=== PATIENT | male | born 1960 | race African-American/Black ===

== ENCOUNTER 2023-09-21 10:40 | Emergency (ER) | payer BC ==
[~2023-09-21] VITALS: Ht 172.7 cm; Wt 56.7 kg
[2023-09-21 10:59] VITALS: BP 141/81; PULSE 105; RESP 18; TEMP 99; O2SAT 99
[2023-09-21 11:25] VITALS: BP 135/67; PULSE 105; RESP 18; TEMP 98; O2SAT 99
== END 2023-09-21 11:25 | disposition home or self-care (01) ==
LOC: MED 10:40
DX: S91.002A Unspecified open wound, left ankle, initial encounter (principal); Z88.0 Allergy status to penicillin; X58.XXXA Exposure to other specified factors, initial encounter; Y92.89 Other specified places as the place of occurrence of the external cause; Y93.89 Activity, other specified; Y99.8 Other external cause status
CPT/HCPCS: 99281

== ENCOUNTER 2023-09-21 15:23 | Inpatient (IN) | payer BC ==
[~2023-09-21] VITALS: Ht 162.6 cm; Wt 57.2 kg
[2023-09-21] MEDS ORDERED: LORazepam 1 MG TAB PO ONE (16:00)
[2023-09-21 16:03] VITALS: BP 125/81; PULSE 101; RESP 20; TEMP 97; O2SAT 98
[2023-09-21] MEDS ORDERED: ACETAMINOPHEN EXTRA STRENGTH 500 MG TAB PO ONE (16:30)
[2023-09-21] MEDS ORDERED: NACL 0.9% 1,000 ML IV ONE (17:05)
[2023-09-21 17:34] LABS: ALANINE AMINOTRANSFERASE 28 U/L (12-78); ALBUMIN 2.3 g/dL (3.4-5.0); ALKALINE PHOSPHATASE 100 U/L (50-136); ASPARTATE AMINOTRANSFERASE 60 U/L (15-37); CALCIUM 9.3 mg/dL (8.5-10.1); CARBON DIOXIDE 26.1 mmol/L (21-32); CHLORIDE 101 mmol/L (98-107); CREATINE KINASE, TOTAL 405 U/L (39-308); CREATININE 1.4 mg/dL (0.6-1.3); GFR ARICAN-AMERICAN 66 mL/min (>90); GFR NON ARICAN-AMERICAN 54 mL/min (>90); GLUCOSE 116 mg/dL (74-106); POTASSIUM 5.1 mmol/L (3.5-5.1); SODIUM SERUM 135 mmol/L (136-145); TOTAL BILIRUBIN 0.5 mg/dL (0.0-1.0); TOTAL PROTEIN, SERUM 9.4 g/dL (6.4-8.2); UREA NITROGEN, BLOOD 23 mg/dL (7-18)
[2023-09-21] MEDS ORDERED: NACL 0.9% 1,000 ML IV SCH (19:30)
[2023-09-21] MEDS ORDERED: DEXAMETHASONE 10 MG/ML VIAL IM ONE (19:35)
[2023-09-21] MEDS ORDERED: ONDANSETRON 4 MG/2 ML VIAL IM SCH (19:35)
[2023-09-21] MEDS ORDERED: MELATONIN 3 MG TAB PO PRN (19:35)
[2023-09-21] MEDS ORDERED: MORPHINE SULFATE 2 MG/ML SYR IVP PRN (19:35)
[2023-09-21 21:35] LABS: BASOPHILS # (AUTO) 0.1 K/uL (0.00-0.22); BASOPHILS % (AUTO) 0.6 % (0.0-2.0); EOSINOPHILS # (AUTO) 0.1 K/uL (0-0.4); EOSINOPHILS % (AUTO) 0.9 % (0.0-4.0); HEMATOCRIT 28.4 % (36-52); HEMOGLOBIN 9.2 g/dL (12.0-18.0); LYMPHOCYTES # (AUTO) 1.8 K/uL (2.0-11.5); LYMPHOCYTES % (AUTO) 17.6 % (20.5-51.1); MEAN CORPUSCULAR HEMOGLOBIN 26 pg (27-31); MEAN CORPUSCULAR HGB CONC 32 g/dL (33-37); MEAN CORPUSCULAR VOLUME 79.6 fL (80-94); MONOCYTES # (AUTO) 1.5 K/uL (0.8-1.0); MONOCYTES % (AUTO) 14.6 % (1.7-9.3); NEUTROPHILS # (AUTO) 6.6 K/uL (1.8-7.7); NEUTROPHILS % (AUTO) 66.3 % (42.2-75.2); PLATELET COUNT (AUTO) 547 K/uL (140-450); RED BLOOD CELL COUNT(AUTO) 3.57 MIL/uL (4.20-6.10)
[2023-09-21 22:13] LABS: INR 1.05 (0.8-1.2)
[2023-09-21] MEDS ORDERED: DEXAMETHASONE 10 MG/ML VIAL ONE (23:32)
[2023-09-22] VITALS (17 sets, daily range): BP systolic 133–189; BP diastolic 62–115; PULSE 77–113; RESP 15–26; TEMP 97.2–98.1; O2SAT 95–100
[2023-09-22 03:35] LABS: FLU A ANTIGEN negative (NEGATIVE); FLU B ANTIGEN NEGATIVE (NEGATIVE)
[2023-09-22 06:02] LABS: APPEARANCE,URINE CLEAR (CLEAR); BILIRUBIN,URINE NEGATIVE (NEGATIVE); BLOOD, URINE NEGATIVE (NEGATIVE); COLOR,URINE YELLOW (YELLOW); LEUKOCYTE ESTERASE ,URINE NEGATIVE (NEGATIVE); NITRITE, URINE POSITIVE (NEGATIVE); PROTEIN,URINE NEGATIVE (NEGATIVE); UGLUCOSE NEGATIVE (NEGATIVE); UROBILINOGEN,URINE 0.2 EU/dL (0.2 - 1)
[2023-09-22 06:03] LABS: AMPHETAMINE, URINE POSITIVE ng/ml (NEG <=1000); BARBITURATE, URINE NEGATIVE ng/ml (NEG <=200); BENZODIAZEPINE, URINE POSITIVE ng/mL (NEG <=200); CANNABINOID, URINE NEGATIVE ng/mL (NEG <=50); COCAINE, URINE POSITIVE ng/mL (NEG <=300); OPIATE, URINE NEGATIVE ng/mL (NEG <=2000); PHENCYCLIDINE SCREEN,URINE NEGATIVE ng/mL (NEG <=25)
[2023-09-22 06:05] LABS: BACTERIA,URINE 10-30 (MOD) /HPF (None Seen); MUCUS,URINE 1+ /LPF (None Seen); RBC,URINE 0-5 /HPF (0-5); SQUAMOUS EPITHELIAL CELL,UR 0-3 (FEW) /LPF (0-3 (FEW)); WBC,URINE 0-5 /HPF (0-5)
[2023-09-22] MEDS: DEXAMETHASONE 4 MG/ML VIAL IVP SCH ×3 (06:31→18:19)
[2023-09-22] MEDS ORDERED: POTASSIUM CHLORIDE 10 MEQ TABER PO PRN (07:35)
[2023-09-22] MEDS ORDERED: DOCUSATE SODIUM 100 MG GELCAP PO PRN (07:35)
[2023-09-22] MEDS ORDERED: ONDANSETRON 4 MG/2 ML VIAL IVP PRN (07:35)
[2023-09-22] MEDS ORDERED: MAG SULF 2000 MG/WATER PREMIX 50 ML IV PRN (07:35)
[2023-09-22] MEDS ORDERED: ZOLPIDEM 5 MG TAB PO PRN (07:50)
[2023-09-22] MEDS ORDERED: PANTOPRAZOLE 40 MG INJ VIAL IVP SCH (12:48)
[2023-09-22] MEDS: chlordiazePOXIDE 25 MG CAP PO SCH ×2 (15:08→18:20)
[2023-09-22] MEDS: LABETALOL 200 MG TAB PO SCH ×2 (15:08→20:48)
[2023-09-22] MEDS: HYDROcodone/APAP 5/325 MG 1 TAB TAB PO PRN (20:49)
[2023-09-23] VITALS (12 sets, daily range): BP systolic 156–185; BP diastolic 65–118; PULSE 70–84; RESP 15–21; TEMP 97.3–98; O2SAT 96–99
[2023-09-23] MEDS: DEXAMETHASONE 4 MG/ML VIAL IVP SCH ×4 (00:24→18:23)
[2023-09-23 07:35] LABS: BASOPHILS % (AUTO) 0.2 % (0.0-2.0); HEMATOCRIT 26.5 % (36-52); HEMOGLOBIN 8.8 g/dL (12.0-18.0); LYMPHOCYTES # (AUTO) 0.7 K/uL (2.0-11.5); LYMPHOCYTES % (AUTO) 7.5 % (20.5-51.1); MEAN CORPUSCULAR HEMOGLOBIN 26 pg (27-31); MEAN CORPUSCULAR HGB CONC 33 g/dL (33-37); MEAN CORPUSCULAR VOLUME 79.2 fL (80-94); MONOCYTES # (AUTO) 0.3 K/uL (0.8-1.0); MONOCYTES % (AUTO) 3.3 % (1.7-9.3); NEUTROPHILS # (AUTO) 8.9 K/uL (1.8-7.7); PLATELET COUNT (AUTO) 538 K/uL (140-450); RED BLOOD CELL COUNT(AUTO) 3.35 MIL/uL (4.20-6.10); RED CELL DISTRIBUTION WIDTH 16.5 % (11.6-13.7)
[2023-09-23 08:18] LABS: ALBUMIN 2.1 g/dL (3.4-5.0); ANION GAP 15.2 (8-16); CALCIUM 8.7 mg/dL (8.5-10.1); CARBON DIOXIDE 23.5 mmol/L (21-32); CREATININE 1.1 mg/dL (0.6-1.3); POTASSIUM 4.7 mmol/L (3.5-5.1); TOTAL BILIRUBIN 0.3 mg/dL (0.0-1.0); TOTAL PROTEIN, SERUM 8.4 g/dL (6.4-8.2)
[2023-09-23] MEDS ORDERED: PANTOPRAZOLE 40 MG INJ VIAL IVP SCH (09:00)
[2023-09-23] MEDS ORDERED: THIAMINE 100 MG TAB PO SCH (09:00)
[2023-09-23] MEDS ORDERED: FOLIC ACID 1 MG TAB PO SCH (09:00)
[2023-09-23] MEDS: LABETALOL 200 MG TAB PO SCH (09:34)
[2023-09-23] MEDS: chlordiazePOXIDE 25 MG CAP PO SCH ×3 (09:37→18:23)
[2023-09-23] MEDS ORDERED: DIPHENHYDRAMINE HCL/ZINC ACET 28 GM TUBE TP PRN (09:40)
[2023-09-23] MEDS ORDERED: amLODIPine 5 MG TAB PO SCH (13:25)
[2023-09-23] MEDS: HYDROcodone/APAP 5/325 MG 1 TAB TAB PO PRN (14:28)
[2023-09-23] MEDS ORDERED: FERROUS GLUCONATE 324 MG TAB PO SCH (17:00)
[2023-09-23] MEDS ORDERED: LABETALOL 200 MG TAB PO SCH (21:00)
[2023-09-24 10:04] LABS: VITAMIN D, 25-HYDROXY 13.3 ng/mL (30.0-100.0)
== END 2023-09-23 20:18 | disposition critical access hospital (66) | DRG 720 ==
LOC: MED 15:23 → MTU 19:34 → MIC 09-22 04:30
PROVIDERS: ADMIT Family Medicine; ATTEND Family Medicine
DX: A41.9 Sepsis, unspecified organism (principal); G93.6 Cerebral edema; N17.0 Acute kidney failure with tubular necrosis; G93.41 Metabolic encephalopathy; E43 Unspecified severe protein-calorie malnutrition; C34.90 Malignant neoplasm of unspecified part of unspecified bronchus or lung; E86.0 Dehydration; D50.9 Iron deficiency anemia, unspecified; F12.10 Cannabis abuse, uncomplicated; R74.01 Elevation of levels of liver transaminase levels; Z20.822 Contact with and (suspected) exposure to COVID-19; I12.9 Hypertensive chronic kidney disease with stage 1 through stage 4 chronic kidney disease, or unspecified chronic kidney disease; E87.1 Hypo-osmolality and hyponatremia; N18.9 Chronic kidney disease, unspecified; C79.31 Secondary malignant neoplasm of brain; I70.0 Atherosclerosis of aorta; F13.10 Sedative, hypnotic or anxiolytic abuse, uncomplicated; F14.10 Cocaine abuse, uncomplicated; Z68.21 Body mass index [BMI] 21.0-21.9, adult
CPT/HCPCS: 36415; 70450; 71045; 71250; 72131; 76700; 80053; 80305; 81001; 82306; 82550; 82553; 82607; 83036; 83540; 83930; 83935; 84443; 84484; 85025; 85610; 86592; 87040; 87081; 93005; 96360; 96372; 97112; 97163-GP; 99291; C9113; G0482; J1100; J1644; J2270; Q0092